=== PATIENT | male | born 1990 | race Caucasian/White ===

== ENCOUNTER 2020-03-07 12:19 | Observation (INO) | payer OTHER ==
[~2020-03-07] VITALS: Ht 190.5 cm; Wt 146.2 kg
[2020-03-07] VITALS (8 sets, daily range): BP systolic 122–158; BP diastolic 51–93
--- NOTE | 2020-03-07 15:08 | NUR ---
PT TO OR PRIOR TO ADMISSION,PAIN TO LFT FOOT REMAINS @ 10 ON 1-10 SCALE PRIOR TO SURGERY.
[2020-03-07 16:27] LABS: BASO # 0.1 10*3/uL (0.0-0.1); BASO % 0.5 % (0.0-1.0); EOS # 0.1 10*3/uL (0.0-0.4); EOS % 1.2 % (1.0-4.0); HEMATOCRIT 42.2 % (42.0-52.0); LYMPH % 33.6 % (27.0-41.0); MEAN CORPUSCULAR HGB 30.3 pg (27.0-31.0); MEAN CORPUSCULAR HGB CONC 34.8 g/dl (33.0-37.0); MEAN PLATELET VOLUME 10.5 fl (9.6-12.3); MONO # 0.7 10*3/uL (0.1-1.0); NEUT % 58.4 % (47.0-73.0); PLATELET COUNT AUTOMATED 378 10*3/uL (130-400); RED BLOOD COUNT 4.85 10*6/uL (4.50-5.90); RED CELL DISTRI WIDTH 12.4 % (0-14.5); WHITE BLOOD COUNT 11.9 10*3/uL (4.8-10.8)
[2020-03-07 16:38] LABS: BUN 16 mg/dl (7-24); CHLORIDE 106 mmol/L (98-107); CREATININE 0.98 mg/dL (0.70-1.30); SODIUM 137 mmol/L (136-145)
--- NOTE | 2020-03-07 17:58 | NUR ---
PT REMAINS IN SURGERY @ THIS TIME.
--- NOTE | 2020-03-07 18:42 | NUR ---
REPORT FROM ALYSE READ RN FROM SURGERY PRIOR TO PT'S RETURN TO ED.
--- NOTE | 2020-03-07 18:46 | NUR ---
KIANA @ PHARMACY NOTIFIED OF PT'S MEDICATIONS ON EMAR THAT WERE PROVIDED IN SURGERY TO UPDATE EMAR.
--- NOTE | 2020-03-07 21:27 | NUR ---
PATIENT REPOSITIONED FOR COMFORT. SIDE RAILS X2 IN PLACE. WILL CONTINUE TO MONITOR PT.
[2020-03-08 01:30] VITALS: BP 130/65
--- NOTE | 2020-03-08 01:30 | NUR ---
A 29, admitted to 5E, under the services of ADRI Enriquez DO with a diagnosis of FRACTURE LEFT FOURTH DIGIT PROXIMAL PHALANX. Chief complaint is FOOR PROBLEM. Patient arrived via stretcher from ER. Monitor applied. Initial assessment completed. Vital signs taken and recorded. ADRI ENRIQUEZ DO notified of admission to the unit. Orders received. See assessment for past medical history, medications and allergies. Patient and/or family oriented to unit. visitation policy reviewed. Clothing/patient valuable form completed. ANDREW RIDER A
--- NOTE | 2020-03-08 02:43 | NUR ---
PRN NORCO GIVEN AT THIS TIME FOR LEFT FOOT PAIN RATING A 6/10, BEDSIDE COMMODE PROVIDED. WILL CONTINUE TO MONITOR.
--- NOTE | 2020-03-08 03:26 | NUR ---
PRN NORCO NOT EFFECTIVE PER PATIENT. CALL PLACED TO RESIDENT DR. MARTINEZ 1MG MORPHINE ORDERED AT THIS TIME.
--- NOTE | 2020-03-08 07:10 | NUR ---
CHART CHECK COMPLETE.
[2020-03-08 07:11] LABS: BASO % 0.4 % (0.0-1.0); EOS # 0.2 10*3/uL (0.0-0.4); EOS % 1.9 % (1.0-4.0); HEMATOCRIT 38.6 % (42.0-52.0); LYMPH # 3.6 10*3/uL (1.3-4.4); LYMPH % 39.5 % (27.0-41.0); MEAN CORPUSCULAR HGB CONC 33.9 g/dl (33.0-37.0); MEAN PLATELET VOLUME 10.9 fl (9.6-12.3); MONO # 0.7 10*3/uL (0.1-1.0); MONO % 7.2 % (3.0-9.0); NEUT # 4.6 10*3/uL (2.3-7.9); NEUT % 50.7 % (47.0-73.0); PLATELET COUNT AUTOMATED 324 10*3/uL (130-400); RED BLOOD COUNT 4.23 10*6/uL (4.50-5.90); WHITE BLOOD COUNT 9.1 10*3/uL (4.8-10.8)
[2020-03-08 07:12] LABS: MEAN CELL VOLUME 91.3 fl (80.0-94.0)
[2020-03-08 07:28] LABS: ALBUMIN 3.6 gm/dl (3.1-4.5); BUN 17 mg/dl (7-24); CHLORIDE 105 mmol/L (98-107); CHOLESTEROL 167 mg/dL (<200); POTASSIUM 4.1 mmol/L (3.5-5.1); SGOT/AST 15 IU/L (3-35); SGPT/ALT 44 U/L (12-78); SODIUM 137 mmol/L (136-145)
[2020-03-08 07:36] LABS: ALKALINE PHOSPHATASE 51 U/L (45-117); HDL CHOLESTEROL 38 mg/dl (40-60); LDL CHOLESTEROL 74 mg/dL (9-159); TRIGLYCERIDES 276 mg/dl (<150); VLDL CHOLESTEROL 55 mg/dL (6-40)
[2020-03-08 08:00] VITALS: BP 115/63
--- NOTE | 2020-03-08 09:11 | NUR ---
PT GIVEN NORCO FOR C/O PAIN TO LEFT FOOT. WILL MONITOR FOR EFFECTIVENESS. CALL LIGHT IN REACH.
[2020-03-08 09:23] LABS: VITAMIN D, 25-HYDROXY 19.1 ng/mL (30-100)
--- NOTE | 2020-03-08 09:24 | NUR ---
Received call from Ruby at [facility]. Awaiting paperwork for worker's compensation claim.
--- NOTE | 2020-03-08 09:44 | NUR ---
procedure manager for patients employer called asking for updates. Ruby Camargo: phone [phone]/ fax [phone]. Per director of Case Management, Jesus Ray, Ruby must fax a form to the hospital identifying patient is on workers comp. Waiting on workers comp form.
--- NOTE | 2020-03-08 10:13 | NUR ---
PT STATES THAT NORCO IS INEFFECTIVE AND ASKS FOR SOMETHING ELSE. KEN KAY CHART CLERK NOTIFIED AND STATES TO ADD PERCOCET5-325 MG TAB EVERY 6 HOURS NEEDED. PT GIVEN PERCOCET. WILL MONITOR FOR EFFECTIVENESS. CALL LIGHT IN REACH.
--- NOTE | 2020-03-08 10:44 | NUR ---
Discharge Plannerin to talk to patient in his Room. 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 Does patient want to access PORTAL?: Declines Discharge plan at this time is for Pt. to return home to [place] and Follow up with his Primary Care Provider who can refer Him to Plate Cutter or Surgeon. ARIANNE NOGUERA LPN
--- NOTE | 2020-03-08 11:13 | NUR ---
PERCOCET IS SOMEWHAT EFFECTIVE.
--- NOTE | 2020-03-08 11:43 | NUR ---
PHYSICAL THERAPY Physical therapy evaluation completed. Full details and evaluation to follow. Moderate complexity skilled PT evaluation performed [id number]. PT will work on strength, gait, AD usage, balance, transfers and safety per POC. Recommend home with home health at discharge. Aleksandra Arellano PT, DPT
--- NOTE | 2020-03-08 11:54 | NUR ---
Occupational Therapy evaluation completed on with full evaluation to follow. Recommend occupational therapy per plan of care and Home with HH/ another person occasional assist upon discharge. Thank you for this referral. Annalisa Enrique OTR/L
[2020-03-08 12:00] VITALS: BP 118/70
--- NOTE | 2020-03-08 12:02 | NUR ---
Therapy delivered Crutches to Patient and Educated on Use of Crutches.
--- NOTE | 2020-03-08 12:59 | NUR ---
[facility]. Spoke to Ruby and given updated. Faxed clinical to [phone].
--- NOTE | 2020-03-08 13:08 | NUR ---
PT C/O PAIN AND STATES THAT IT HAS WORSENED FROM EARLIER IN THE DAY. MORPHINE 2 MG IVP X1 DOSE IS ORDERED FOR NOW AND GIVEN. WILL MONITOR. CALL LIGHT IN REACH.
--- NOTE | 2020-03-08 14:02 | NUR ---
Spoke to Ruby from [facility]. Her cell phone number is [phone] as she will be travelling in the morning. In case DME or HH is needed call [facility] at [phone].
--- NOTE | 2020-03-08 14:08 | NUR ---
MORPHINE IS EFFECTIVE PER PT.
--- NOTE | 2020-03-08 15:59 | NUR ---
PT C/O PAIN AND ASKS FOR MEDICATION. PERCOCET GIVEN AT THIS TIME. WILL MONITOR FOR EFFECTIVENESS. CALL LIGHT IN REACH.
[2020-03-08 16:00] VITALS: BP 126/76
--- NOTE | 2020-03-08 16:50 | NUR ---
KEN KAY [employer] SUPERINTENDENT NOTIFIED THAT PT STATES THAT PERCOCET IS NOT HELPING PAIN TO LEFT FOOT. NEW ORDERS RECEIVED FOR MORPHINE 2 MG EVERY 4 HOURS PRN, AND PERCOCET 5-325 MG TAB EVERY 4 HOURS NEEDED FOR PAIN.
--- NOTE | 2020-03-08 17:52 | NUR ---
PT GIVEN 2 MG MORPHINE VIA IVP. WILL MONITOR FOR EFFECTIVENESS. CALL LIGHT IN REACH.
--- NOTE | 2020-03-08 18:52 | NUR ---
MORPHINE IS EFFECTIVE PER PT.
[2020-03-08 20:00] VITALS: BP 127/58
--- NOTE | 2020-03-08 21:07 | NUR ---
PATIENT MEDICATED WITH PERCOCET FOR COMPLAINTS OF LEFT FOOT PAIN. WILL MONITOR FOR EFFECTIVENESS.
--- NOTE | 2020-03-08 22:00 | NUR ---
PERCOCET EFFECTIVE. PATINET RESTING IN BED WITH EYES CLOSED NO SIGNS OR SYMPTOMS OF DISTRESS NOTED. CALL LIGHT IN REACH.
--- NOTE | 2020-03-08 23:43 | NUR ---
MEDICATED WITH MORPHINE FOR COMPLAINTS OF LEFT FOOT PAIN. WILL MONITOR FOR EFFECTIVENESS.
[2020-03-09] VITALS: BP 129/74
--- NOTE | 2020-03-09 00:35 | NUR ---
MORPHINE EFFECTIVE. PATIENT IN BED WITH EYES CLOSED. NO SIGNS OR SYMPTOMS OF DISTRESS NOTED.
--- NOTE | 2020-03-09 03:46 | NUR ---
MEDICATED WITH MORPHINE FOR COMPLAINTS OF LEFT FOOT PAIN. WILL CONTINUE TO MONITOR.
--- NOTE | 2020-03-09 04:15 | NUR ---
MORPHINE EFFECTIVE. RESTING IN BED WITH EYES CLOSED.
[2020-03-09 08:00] VITALS: BP 115/61
--- NOTE | 2020-03-09 08:32 | NUR ---
PT GIVEN PERCOCET FOR C/O LLE PAIN. WILL MONITOR FOR EFFECTIVENESS. CALL LIGHT IN REACH.
[2020-03-09 08:39] LABS: BASO # 0.1 10*3/uL (0.0-0.1); BASO % 0.6 % (0.0-1.0); EOS # 0.4 10*3/uL (0.0-0.4); EOS % 4.8 % (1.0-4.0); HEMATOCRIT 39.6 % (42.0-52.0); LYMPH % 39.2 % (27.0-41.0); MEAN CELL VOLUME 91.7 fl (80.0-94.0); MEAN CORPUSCULAR HGB 30.8 pg (27.0-31.0); MEAN CORPUSCULAR HGB CONC 33.6 g/dl (33.0-37.0); MEAN PLATELET VOLUME 10.4 fl (9.6-12.3); MONO # 0.6 10*3/uL (0.1-1.0); MONO % 7.4 % (3.0-9.0); NEUT # 3.7 10*3/uL (2.3-7.9); NEUT % 47.7 % (47.0-73.0); PLATELET COUNT AUTOMATED 293 10*3/uL (130-400); RED BLOOD COUNT 4.32 10*6/uL (4.50-5.90); RED CELL DISTRI WIDTH 12.5 % (0-14.5); WHITE BLOOD COUNT 7.7 10*3/uL (4.8-10.8)
--- NOTE | 2020-03-09 11:39 | NUR ---
IV started right wrist with #20 protective cath after 0 attempts. Site prepped with Chloroprep. Sterile dressing applied. Patient tolerated procedure well. IV site is saline locked. LARRY GONZALEZ
[2020-03-09 12:00] VITALS: BP 117/73
--- NOTE | 2020-03-09 13:20 | NUR ---
PHYSICAL THERAPY Patient seen this pm 1:1 for therapy visit and was relaxing supine in bed upon therapist arrival. Patient identified by name / and presented with L LE yeu wrap cast secondary to recent foot surgery. Patient reports feeling L foot "burning" sensation, especially in dependent standing position and has been keeping his L LE elevated in bed upon several pillows for comfort. Patient transfers all this session with Supervision, ambulating with use B axillary crutches, 20'x 1 to bathroom, SBA x 1. Patient also ambulated additional 100'x 1, B axillary crutches, SBA, demonstrating no LOB including several steps backwards. Patient returned to supine in bed as lunch arrived, L LE again elevated on several pillows for pain/burning control. Pateint remained in bed with call light, tray table and cell phone. Will continue per POC as tolerated, total treatment time 18 minutes. Timur Giron, ARCHIVAL STUDIES PROFESSOR
--- NOTE | 2020-03-09 15:14 | NUR ---
Received call from Ruby at [facility]. Faxed updated clinical.
[2020-03-09] MEDS ORDERED: Percocet 325 MG1 TAB PO (15:43)
[2020-03-09 16:00] VITALS: BP 147/73
--- NOTE | 2020-03-09 16:07 | NUR ---
PT GIVEN PERCOCET FOR C/O LLE PAIN. WILL MONITOR FOR EFFECTIVENESS. CALL LIGHT IN REACH.
--- NOTE | 2020-03-09 16:18 | NUR ---
Discharge instructions reviewed with patient/family. Patient receptive and verbalizes understanding. Follow-up care arranged. Written instructions given to patient/family. LARRY GONZALEZ
--- NOTE | 2020-03-09 17:30 | NUR ---
PHYSICAL THERAPY CO-SIGN I approve of the Physical Therapy notes written above. CYN DAIGLE PT, DPT
--- NOTE | 2020-03-09 18:00 | NUR ---
PT LEAVES FLOOR AT THIS TIME VIA W/C FOR FAMILY CAR IN ER PARKING LOT.
== END 2020-03-09 20:38 | disposition home or self-care (01) ==
LOC: ED 12:19 → EDHOLD 14:29 → 5E 03-08 01:08
PROVIDERS: Podiatrist; Registered Nurse; ADMIT Family Medicine; ATTEND Family Medicine
DX: S92.512B Displaced fracture of proximal phalanx of left lesser toe(s), initial encounter for open fracture (principal); E66.9 Obesity, unspecified; R03.0 Elevated blood-pressure reading, without diagnosis of hypertension; W22.8XXA Striking against or struck by other objects, initial encounter; Y93.89 Activity, other specified; Y92.89 Other specified places as the place of occurrence of the external cause; Y99.8 Other external cause status; Z23 Encounter for immunization; Z20.828 Contact with and (suspected) exposure to other viral communicable diseases; Z68.30 Body mass index [BMI] 30.0-30.9, adult; Z98.890 Other specified postprocedural states